=== PATIENT | male | born 1965 | race Caucasian/White ===

== ENCOUNTER 2024-12-03 04:24 | Inpatient (IN) | payer BC ==
[~2024-12-03] VITALS: Ht 175.3 cm; Wt 74.8 kg
[2024-12-03] MEDS ORDERED: MORPHINE SULFATE 4 MG/1 ML DISP.SYRIN ONE (05:12)
[2024-12-03] MEDS ORDERED: ONDANSETRON 4 MG/2 ML VIAL ONE (05:12)
[2024-12-03] MEDS: MORPHINE SULFATE 4 MG/1 ML DISP.SYRIN IV ONE (05:14)
[2024-12-03] MEDS: IV NORMAL SALINE 500 ML IV ONE (05:14)
[2024-12-03] MEDS: ONDANSETRON 4 MG/2 ML VIAL IV ONE (05:15)
[2024-12-03 05:29] LABS: *BILIRUBIN,URIN NEGATIVE (NEGATIVE); *CLARITY,URINE CLEAR (CLEAR); *COLOR,URINE YELLOW (YELLOW); *KETONES,URINE NEGATIVE (NEGATIVE); *PROTEIN,URINE NEGATIVE (NEGATIVE); *UROBILINOGEN,URINE 0.2 E.U./dl (NORMAL); LEUKOCYTE ESTERASE ,URINE NEGATIVE (NEGATIVE); NITRITE, URINE NEGATIVE (NEGATIVE); UGLUCOSE NEGATIVE (NEGATIVE)
[2024-12-03 05:32] LABS: *BLOOD, URINE TRACE (NEGATIVE)
[2024-12-03 05:33] LABS: BACTERIA,URINE NONE SEEN /HPF (NONE SEEN); SQUAMOUS EPITHELIAL CELL,UR FEW /HPF (NONE SEEN)
[2024-12-03 05:37] LABS: CALCIUM 9.6 mg/dL (8.5-10.1); CREATININE 1.1 mg/dL (0.6-1.3); POTASSIUM 3.9 mmol/L (3.5-5.1)
[2024-12-03 05:39] LABS: BASOPHILS % (AUTO) 0.5 % (0.0-2.0); DIFFERENTIAL COMMENT 1; EOSINOPHILS # (AUTO) 0.3 K/uL (0.0-0.7); EOSINOPHILS % (AUTO) 4.8 % (0.0-7.0); HEMATOCRIT 42.8 % (36.7-47.1); HEMOGLOBIN 14.7 g/dL (12.5-16.3); LYMPHOCYTES # (AUTO) 1.9 K/uL (0.8-4.8); LYMPHOCYTES % (AUTO) 34.4 % (20.5-51.5); MEAN CORPUSCULAR HEMOGLOBIN 30.7 uug (23.8-33.4); MEAN CORPUSCULAR HGB CONC 34 g/dL (32.5-36.3); MEAN CORPUSCULAR VOLUME 89.5 fL (73.0-96.2); MONOCYTES # (AUTO) 0.7 K/uL (0.1-1.30); NEUTROPHILS # (AUTO) 2.6 K/uL (1.8-8.9); NEUTROPHILS % (AUTO) 47.3 % (38.5-71.5); PLATELET COUNT (AUTO) 334 K/uL (152-348); RED BLOOD CELL COUNT(AUTO) 4.78 MIL/uL (4.06-5.63); RED CELL DISTRIBUTION WIDTH 14.3 % (12.1-16.2); WHITE BLOOD COUNT (AUTO) 5.4 K/uL (3.6-10.2)
[2024-12-03 05:42] LABS: ALBUMIN 3.5 g/dL (3.4-5.0); BILIRUBIN,DIRECT 0.1 mg/dL (0.0-0.2); BILIRUBIN,TOTAL 0.4 mg/dL (0.2-1.0); TOTAL PROTEIN, SERUM 7.4 g/dL (6.4-8.2)
[2024-12-03] MEDS ORDERED: KETOROLAC TROMETHAMINE 30 MG INJ ONE (06:37)
[2024-12-03] MEDS: KETOROLAC TROMETHAMINE 30 MG INJ IVP ONE (06:38)
[2024-12-03 10:34] VITALS: BP 111/82; TEMP 97.7; O2SAT 98
[2024-12-03] MEDS ORDERED: TAMS-3 PO (10:36)
[2024-12-03] MEDS ORDERED: ABAC1TAB15 PO (10:36)
[2024-12-03] MEDS ORDERED: ABACAVIR PO SCH (11:30)
[2024-12-03] MEDS ORDERED: LAMIVUDI PO SCH (11:30)
[2024-12-03] MEDS ORDERED: ONDANSETRON 4 MG/2 ML VIAL IV PRN (11:30)
[2024-12-03] MEDS ORDERED: DOLUTEGRAVIR PO SCH (11:30)
[2024-12-03] MEDS ORDERED: TEMA15CA PO (11:35)
[2024-12-03] MEDS: IV NS 1000 ML 1,000 ML IV PRN (12:21)
[2024-12-03] MEDS: levoFLOXacin 500 MG/D5W 500 MG in PREMIXED 1 EACH IV SCH (15:04)
[2024-12-03 15:33] VITALS: BP 104/60; TEMP 97.9; O2SAT 98
[2024-12-03] MEDS: TAMSULOSIN HCL 0.4 MG CAP.SR.24H PO SCH (15:44)
[2024-12-03 19:16] VITALS: BP 172/98; TEMP 98; O2SAT 96
[2024-12-04] MEDS: ACETAMINOPHEN 325 MG TABLET PO PRN (00:12)
[2024-12-04 05:54] VITALS: BP 156/86; TEMP 98.1; O2SAT 96
[2024-12-04 06:58] LABS: BASOPHILS % (AUTO) 0.2 % (0.0-2.0); EOSINOPHILS # (AUTO) 0.3 K/uL (0.0-0.7); EOSINOPHILS % (AUTO) 2.7 % (0.0-7.0); HEMATOCRIT 41.4 % (36.7-47.1); HEMOGLOBIN 14.8 g/dL (12.5-16.3); LYMPHOCYTES % (AUTO) 10.5 % (20.5-51.5); MEAN CORPUSCULAR HGB CONC 36 g/dL (32.5-36.3); MEAN CORPUSCULAR VOLUME 89.6 fL (73.0-96.2); MONOCYTES # (AUTO) 0.9 K/uL (0.1-1.30); MONOCYTES % (AUTO) 9.4 % (0.0-11.0); NEUTROPHILS # (AUTO) 7.6 K/uL (1.8-8.9); NEUTROPHILS % (AUTO) 77.2 % (38.5-71.5); PLATELET COUNT (AUTO) 270 K/uL (152-348); RED BLOOD CELL COUNT(AUTO) 4.62 MIL/uL (4.06-5.63); RED CELL DISTRIBUTION WIDTH 14.3 % (12.1-16.2); WHITE BLOOD COUNT (AUTO) 9.9 K/uL (3.6-10.2)
[2024-12-04 07:07] LABS: ALBUMIN 3.1 g/dL (3.4-5.0); BILIRUBIN,DIRECT 0.2 mg/dL (0.0-0.2); BILIRUBIN,TOTAL 0.8 mg/dL (0.2-1.0); CALCIUM 8.3 mg/dL (8.5-10.1); CREATININE 0.7 mg/dL (0.6-1.3); MAGNESIUM 1.9 mg/dL (1.8-2.4); PHOSPHOROUS 2.7 mg/dL (2.5-4.9); POTASSIUM 3.6 mmol/L (3.5-5.1); TOTAL PROTEIN, SERUM 6.9 g/dL (6.4-8.2)
[2024-12-04 07:15] LABS: DIFFERENTIAL COMMENT 1
[2024-12-04] MEDS: MORPHINE SULFATE 2 MG/1 ML DISP.SYRIN IV PRN (07:36)
[2024-12-04 11:04] VITALS: BP 148/77; TEMP 98.4; O2SAT 97
[2024-12-04] MEDS ORDERED: TEMAZEPAM 15 MG CAPSULE PO PRN (11:15)
[2024-12-04] MEDS ORDERED: CHOL4PAC9 PO (11:42)
[2024-12-04] MEDS ORDERED: DICY10CA13 PO (11:42)
[2024-12-04 15:18] VITALS: BP 143/78; TEMP 97.6; O2SAT 97
[2024-12-04 17:05] VITALS: TEMP 99.3
[2024-12-04] MEDS: KETOROLAC TROMETHAMINE 15 MG INJ IVP ONE (17:40)
== END 2024-12-04 20:09 | disposition home or self-care (01) | DRG 445 ==
LOC: ER 04:28 → MEDSURG3 08:00
PROVIDERS: ADMIT Nurse Practitioner Acute Care; ATTEND Nurse Practitioner Acute Care
DX: K80.10 Calculus of gallbladder with chronic cholecystitis without obstruction (principal); Z59.02 Unsheltered homelessness; Z91.199 Patient's noncompliance with other medical treatment and regimen due to unspecified reason; Z88.0 Allergy status to penicillin; Z91.018 Allergy to other foods; Z91.010 Allergy to peanuts
CPT/HCPCS: 36415; 78445; 83690; 83735; 84100; 85025; 85730; A4606; A4663; A9537; G0378; J1885; J1956; J2270; J2405; J7040